=== PATIENT | male | born 1985 | race Caucasian/White ===

== ENCOUNTER 2024-07-14 10:02 | Emergency (ER) | payer SELFPAY ==
[2024-07-14 10:12] VITALS: BP 126/72; PULSE 89; RESP 17; TEMP 36.6; O2SAT 100
--- NOTE | 2024-07-14 10:16 | ED_ITS ---
HPI - URI/Sore Throat General Chief Complaint: Upper Respiratory Infection Stated Complaint: chest pain/cough Time Seen by Provider: 07/14/24 10:07 Source: patient Mode of arrival: ambulatory Limitations: no limitations History of Present Illness HPI Narrative: Patient is a 39-year-old male who presents with 3 weeks of cough and chest wall pain. Patient smokes 2 packs a day. Reports productive cough. Denies any fever, chills, nausea, vomiting, diarrhea. Has not taken anything for symptoms. Related Data Allergies Allergy/AdvReac Type Severity Reaction Status Date / Time No Known Allergies Allergy Verified 07/14/24 10:11 Review of Systems Review of Systems: All systems reviewed & are unremarkable except as noted in HPI and below Constitutional: Constitutional: Denies chills, Denies fatigue, Denies fever(s), Denies headache(s), Denies malaise and Denies weakness Eyes: Eyes: Denies blurry vision, Denies itchy eyes and Denies loss of vision ENT: Denies otalgia, Denies headache(s), Denies nasal congestion, Denies sinus pain and Denies sore throat Cardiovascular: Cardiovascular: Denies chest pain, Denies irregular heart rhythm and Denies dyspnea Respiratory: Respiratory: Reports chest congestion, Reports cough and Denies dyspnea Gastrointestinal: Gastrointestinal: Denies abdominal pain, Denies diarrhea, Denies nausea and Denies vomiting Musculoskeletal: Musculoskeletal: Denies back pain, Denies myalgias and Denies arthralgias Integumentary/Breasts: Skin/Breast: Denies pruritus and Denies rash Neurologic: Denies headache(s), Denies loss of vision and Denies weakness Psychiatric: Psychiatric: Reports no additional psychiatric complaints Endocrine: Endocrine: Denies fatigue Allergic/Immunologic: Allergic/Immunologic: Denies itchy eyes PMFSH Comments At time of signature, agree with nursing past medical, surgical, social and family history. There is no relevant family history pertinent to the presenting complaint. Exam Const: General: cooperative, healthy appearing, comfortable, no acute distress and well nourished Nutritional Appearance: well nourished Orientation/consciousness: patient oriented x3 Limitations: no limitations HENMT: Head: normal to inspection, normocephalic and atraumatic Ears: hearing grossly normal bilaterally, external ears normal, TM's normal bilaterally, EAC's normal and no periauricular adenopathy Face/Nose/Sinus: Normal external nose present, Abnormal mucous membranes and turbinates present erythematous bilateral and diffuse, normal facial exam, sinuses nontender and face symmetric Face and sinus: normal facial exam, sinuses nontender and face symmetric Mouth: Yes Normal oral and palatal mucosa present, Yes lip normal, Yes tongue normal, Yes Normal salivary glands and ducts present, Yes oropharynx normal and Yes moist mucous membranes Teeth and gingiva: dentition normal Throat: posterior oropharynx normal, tonsils normal and uvula midline Eyes: General: appearance normal, both eyes and all related structures Alignment and Position: alignment normal and position normal Periorbital: periorbital findings normal Eyelids: eyelids normal Pupils: Equal, round and reactive pupils present Neck: Neck: normal visual inspection, full ROM, no lymphadenopathy and supple Chest: Chest palpation & inspection: normal inspection of the chest and normal palpation of entire chest wall Resp: Effort & Inspection: normal respiratory effort, able to speak in complete sentences and Actively coughing productive Auscultation: no crackles, no rales, rhonchi throughout and no wheezes Cardio: Rate: regular rate Rhythm: regular rhythm Heart sounds: S1 normal heart sound present and S2 normal heart sound present GI: Inspection: normal to inspection Skin: General skin exam: normal color and no rashes or lesions noted Neuro: General: patient oriented x3 and moves all extremities Cranial nerves: Yes Equal, round and reactive pupils present Speech: normal speech Gait exam (Neuro): Normal gait present Extrem: General: normal to inspection, full ROM and no edema Psych: Appearance: grossly normal and well kempt Mental Status: mental status grossly normal Speech and movement: Normal speech and movement present Affect: normal affect Attitude: cooperative Thought process: Normal thought process present Course Course Emergency Course: Discharge instructions reviewed with patient, as well as provided in writing per nursing staff. The instructions also include specific and strict return/GO TO THE ER as well as f/u information. All questions have been answered, and the patient deny any further questions w ith discharge and discharge plan. Portions of this record may have been created with voice recognition software Level of Care: Express Care Visit Vital Signs Vital signs: Vital Signs Temperature 36.6 C 07/14/24 10:12 Pulse Rate 89 07/14/24 10:12 Respiratory Rate 17 07/14/24 10:12 Blood Pressure 126/72 07/14/24 10:12 Pulse Oximetry 100 07/14/24 10:12 Oxygen Delivery Room Air 07/14/24 10:12 Temperature 36.6 C 07/14/24 10:12 Pulse Rate 89 07/14/24 10:12 Respiratory Rate 17 07/14/24 10:12 Blood Pressure 126/72 07/14/24 10:12 Pulse Oximetry 100 07/14/24 10:12 Oxygen Delivery Room Air 07/14/24 10:12 Reviewed MDM - URI/Sore Throat MDM Narrative Medical decision making narrative: Pt well hydrated appearing, in no respiratory distress, hemodynamically stable. Recommend supportive care. The patient is stable at time of discharge the clinical impression was discussed and the patient was given the opportunity to ask questions, which were addressed as completely as possible given the information available at present. Anticipatory guidance and return to care prec autions were discussed and the importance of primary care follow-up was stressed and encouraged. The patient voiced understanding of the plan, indications to return, and the need for follow-up. Differential diagnosis considered: Bronchitis, Santizo virus, strep pharyngitis, allergic rhinitis, upper respiratory tract infection, sinusitis, rhinosinusitis, nasopharyngitis. viral pharyngitis, otitis media, otitis externa, otitis effusion, foreign body, cerumen impaction, viral syndrome, and influenza.? Exam findings show no acute concerns or changes; patient is non-toxic appearing and is in no distress.? Patient is appropriate for outpatient treatment and follow- up.? Medical Records Attestation: I reviewed the patient's medical records. Lab Data Attestation: I reviewed the patient's lab results. Discharge Plan Discharge Clinical Impression: Acute purulent bronchitis Patient Disposition: Home, Self-Care Condition: Stable Instructions: Acute Bronchitis (ED) Additional Instructions: Take antibiotic as prescribed. Take steroids in the morning with food. Use Tessalon Perles as needed for cough. Use inhaler with spacer as needed. Other symptomatic treatments include: -Alternate Tylenol and Motrin per package directions for fever or pain: Tylenol 650-1000mg by mouth every 4-6 hours. Do not exceed 4000mg in 24 hours. Advil (Ibuprofen) 600 mg by mouth every 6 hours. Do not exceed 2400mg in 24 hours. 8 AM: Tylenol 11 AM: Ibuprofen 2 PM: Tylenol 5 PM: Ibuprofen 8 PM: Tylenol 11 PM: Ibuprofen 2 AM: Tylenol 5 AM: Ibuprofen -Antihistamine medication such as Benadryl at night and Zyrtec/Claritin/Kya during the day can help improve symptoms. -Use Flonase twice a day for 5 days then daily to help reduce the inflammation and dry up your sinuses. -You can also use Sudafed or Mucinex. Be sure to drink plenty of water with these medications at least 8 ounces with every dose and it is important to drink 8 to 10 glasses of water per day. Water is a natural decongestant -Eat and drink things that are easy to swallow, like tea or soup, or popsicles. -Oral rinses such as: Salt water gargles and/or may use topical anesthetic (eg. Chloraseptic spray) or lozenges to relieve dryness or throat pain). -Frequent hand washing or hand ethylbenzene converter operator is one of the best ways to prevent spread of infection. -Using a vaporizer or humidifier at night will also help thin secretions and help with coughing up phlegm. Call your Primary Care Doctor and make a follow-up appointment in 3 days. If your cough worsens, you develop a fever greater than 103, you develop shaking chills, a fast heartbeat, trouble breathing and/or feel you are are breathing much faster than usual, call your Primary Care Doctor or go to the ER. Patient Language: Uruguayan Prescriptions: New prednisone 20 mg tablet 40 mg PO DAILY 5 Days Qty: 10 0RF doxycycline monohydrate 100 mg tablet 100 mg PO BID 7 Days Qty: 14 0RF benzonatate 100 mg capsule 100 mg PO BID PRN (Reason: cough) Qty: 14 0RF albuterol sulfate 90 mcg/actuation HFA aerosol inhaler 2 puff inhalation QID PRN (Reason: shortness of breath or wheezing) Qty: 6.7 0RF (DME) Aerochamber MV Spacer See Rx Instructions .Route Qty: 1 0RF Rx Instructions: As directed Follow-up/Referrals: UNKNOWN,DOCTOR [Primary Care Provider] - Time of Disposition: 10:28
--- OUTSIDE RECORDS SUMMARY | 2024-07-14 10:47 | XMS_ITS ---
Author Organization Unknown Address [address], [place] [id number] Phone Care Team Providers Care Merchandise Flow Team Leader Name Role Phone NIKKIE DEL TORO Attending Unavaila ble Immunization Immunization Date Status Additional Notes Code Code System Hep B, unspecified formulation 09/04/1998 Completed 45 CVX Hep B, unspecified formulation 02/27/1998 Completed 45 CVX Hep B, unspecified formulation 04/10/1998 Completed 45 CVX Influenza, split virus, quadrivalent, PF 02/01/2014 Completed 150 CVX no vaccine administered 1985 Completed 998 CVX Results UGI W/AIR - Completed: 05/12 09:20 LOINC: \TM00\10PI\LM03\RM80\BELKIS o\BM09\ \MRHo\ [address] [address] ---------NAME--------- NUMBER SEX AGE ADMIT DISC. XRAY# F/C TYPE PRASHANT Corey [id number] M 36 05/12/21 05/12/21 [id number] BB O/P DATE OF : 1985 M/R# [id number] PH#: [phone] RM \MRHx\ LOCATION: TRANSCRIBED: 05/12/21 9:41 PSR UGI W/AIR [id number] COMPLETED:05/12/21 9:20 VLF [id number] {REASON ABD PROC GERD WITH ESOPHAGITIS, PHYSICIAN: TETO R A D I O L O G Y R E P O R T History: Gastroesophageal reflux disease. Esophagitis. TECHNIQUE: Double contrast upper GI performed. One minute 15 seconds of fluoroscopy utilized. 89 spot views obtained. On these: Swallowing with thin liquid barium appeared within normal limits. There is no penetration or aspiration. Esophageal peristalsis appears within normal limits. Contrast passed freely into the stomach. There is no hiatal hernia. GE reflux was demonstrated to a level below the kvng. There is no mass or stricture. No inflammatory or ulcerative changes identified at any site. Contrast passed freely from the stomach into the proximal small intestine. There is normal gastric peristalsis. Ligament of Treitz is in normal location. No mass lesions identified. IMPRESSION: MILD GE REFLUX. This report was electronically signed by: Butch Graff M.D. 05/12/2021 9:41 AM Reviewed and Electronically Signed by: BUTCH GRAFF MD , RADIOLOGIST Date/Time: 05/12/21 09:41 Social History Type Status Start Date End Date Code Code Syst em Smoking History Current every day smoker 336654903 SNOMED CT Smoking History Former smoker 1874870 SNOMED CT Sex Male Assessment You had the following problems:ACUTE BRONCHITISCURRENT SMOKERCERUMEN IMPACTION Hospital Discharge Instructions Should you have any questions prior to discharge, please contact a member of your healthcare team. If you have left the hospital and have any questions, please contact your primary care physician. Reason For Referral No Data Found Problems Problem Start Date Resolved Date Status Code Code System ACUTE BRONCHITIS active 78185777 SNO MED-CT CURRENT SMOKER active 38472094 SNOME D-CT CERUMEN IMPACTION active 38238022 SN OMED-CT Allergies and Adverse Reactions Allergy Substance Reaction Severity Start Date Concern Status Co de Code System No Known Drug Allergies Moderate Active 246222828 SNOMED-CT Plan of Treatment No Data Found Encounters Encounter Diagnosis Start Date Code Code Sys tem Gastro-esophageal reflux dis ease with esophagitis, without bleeding 05/12/2021 SNOMED-CT Personal Care Team Section Performer Name Performer Role Active Date Inactive Christopher collier LUCASDUC JOSE RAFAEL PCP - Primary care physician 2022-03-04 Imaging Narrative Notes [facility] [place] 07/12/2021 03:48 [facility] [address] [place] [address] ---------NAME--------- NUMBER SEX AGE ADMIT DISC. XRAY# F/C TYPE PRASHANT Corey [id number] M 36 05/12/21 05/12/21 [id number] BB O/P DATE OF : 1985 M/R# [id number] #: [phone] LOCATION: TRANSCRIBED: 05/12/21 9:41 PSR UGI W/AIR [id number] COMPLETED:05/12/21 9:20 VLF [id number] {REASON ABD PROC GERD WITH ESOPHAGITIS, PHYSICIAN: TETO R A D I O L O G Y R E P O R T History: Gastroesophageal reflux disease. Esophagitis. TECHNIQUE: Double contrast upper GI performed. One minute 15 seconds of fluoroscopy utilized. 89 spot views obtained. On these: Swallowing with thin liquid barium appeared within normal limits. There is no penetration or aspiration. Esophageal peristalsis appears within normal limits. Contrast passed freely into the stomach. There is no hiatal hernia. GE reflux was demonstrated to a level below the kvng. There is no mass or stricture. No inflammatory or ulcerative changes identified at any site. Contrast passed freely from the stomach into the proximal small intestine. There is normal gastric peristalsis. Ligament of Treitz is in normal location. No mass lesions identified.
--- OUTSIDE RECORDS SUMMARY | 2024-07-14 10:47 | XMS_ITS | Encounter Summary ---
Author Organization [facility] Care Address [address] [place] [address] Phone Care Team Providers Care Senior Planner Name Role Phone Dominic Jordan Primary Care Provider [phone] Encounter Details Date Type Department Care Team (Late st Contact Info) Description 03/20/2022 Pharmacy Visit [facility] - Pharmacy - Discharge [address] [place] [address] Social History Tobacco Use Types Packs/Day Years Used Date Smoking Tobacco: Every Day Cigarettes Smokeless Tobacco: Never Alcohol Use Standard Drinks/Week Comments Not Currently 0 (1 standard drink = 0.6 oz pur e alcohol) last drink 3 weeks Sex and Gender Information Value Date Recorded Sex Assigned at Not on file Legal Sex Male 5:59 AM CDT Gender Identity Not on file Sexual Orientation Not on file documented as of this encounter Plan of Treatment Not on file documented as of this encounter Visit Diagnoses Not on filedocumented in this encounter Additional Health Concerns Assessment Noted Time A fall risk assessment has been complete d for the patient 03/19/2022 3:39 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
--- OUTSIDE RECORDS SUMMARY | 2024-07-14 10:47 | XMS_ITS | Clinical Summary ---
Author Organization [facility] Care Address [address] [place] [address] Phone Care Team Providers Care Sports Medicine Masseur Name Role Phone Dominic Jordan Primary Care Provider [phone] Source Comments This disclosure is being made pursuant to the Care Everywhere program,applicable federal and state laws, and may not contain all informationavailable regarding this patient.[facility] Practices Allergies No known active allergies Medications risperiDONE 2 mg tabletIndications:A uditory hallucinations Take 1 tablet (2 mg total) by mouth daily at bedtime. 90 tablet 3 2 Active escitalopram oxalate (LEXAPRO) 10 mg tabletIndications:G eneralized anxiety disorder Take one half tablet (5 mg) daily for one week, then increase to one full tablet (10 mg) daily. 90 tablet 3 2 Active Active Problems Problem Noted Date Diagnosed Date Auditory hallucinations 03/19/2022 Alcohol withdrawal syndrome 03/05/2022 Anxiety 03/05/2022 Immunizations Name Administration Dates Next Due Tdap 08/30/2011 Social History Tobacco Use Types Packs/Day Years Used Date Smoking Tobacco: Every Day Cigarettes Smokeless Tobacco: Never Tobacco Cessation:Ready to Q uit: No; Counseling Given: No Alcohol Use Standard Drinks/Week Comments Not Currently 0 (1 standard drink = 0.6 oz pur e alcohol) last drink 3 weeks PHQ-2 Answer Date Recorded Total score/PHQ-2 5 03/26/2022 Abuse Risk Answer Date Recorded Are you in an UNsafe relationship? Not on file 07/18/2023 Does your partner/boyfriend or girlfriend hit, kick, hurt, or threaten you? Not on file 07/18/2023 Have you suffered any injury as a result of abuse in the past year? Not on file 07/18/2023 Does your partner/boyfriend or girlfriend ever try to control you by threatening you or your family? Not on file 024 Are you currently being forc ed to engage in sexual activity? Not on file 07/18/2023 Are you being abused or thre atened in your work or home environment? Not on file 07/18/2023 Are you being forced to work? Not on file Is the patient a d ependent adult ? Not on file 07/18/2023 Do you feel unsafe at home? Does not apply 07/08 Has anyone tried to force yo u to sign papers or to use your money against your will? Does not apply 07/18/2023 Sex and Gender Information Value Date Recorded Sex Assigned at Not on file Legal Sex Male 5:59 AM CDT Gender Identity Not on file Sexual Orientation Not on file Last Filed Vital Signs Vital Sign Reading Time Taken Comments Blood Pressure 110/64 03/26/2022 9:02 AM JOB HAND Pulse 91 03/26/2022 9:02 AM JOB HAND Temperature 36.5 C (97.7 F) 03/20/2022 8:00 AM JOB HAND Respiratory Rate 15 03/20/2022 8:00 AM JOB HAND Oxygen Saturation 98% 03/20/2022 8:00 AM JOB HAND Inhaled Oxygen Concentration - - Weight 61.4 kg (135 lb 5.8 oz) 03/26/2022 9:02 A M JOB HAND Height 177.8 cm (5' 10 ) 03/26/2022 9:02 AM JOB HAND Body Mass Index 19.42 03/26/2022 9:02 AM JOB HAND Plan of Treatment Health Maintenance Due Date Last Done Comments Annual Physical Visit 1988 HIV [place] Screening 2000 HCV Screening 2003 Varicella Vaccine (1 of 2 - Adult - No Evidence of Immunity) 2003 Pneumococcal Vaccine (1 of 2 - PCV) 2004 Tetanus Diphtheria Pertussis (2 - Td or Tdap) 08/29/2021 08/30/2011 Alcohol Use Screening 03/26/2023 03/26/2022, 022 [id number] Vaccine ( season) 2024 Influenza Vaccine: Seasonal (#1) 01/09/2024 02/02/20 14 Lipid Disorder Screening 03/19/2027 03/19/2022 Hepatitis B Vaccine Completed 09/04/1998, 04/10/1998, 02/27/1998 Procedures Procedure Name Priority Date/Time Associated Diagnosis Comments LIPID PANEL Add on 03/19/2022 5:32 AM JOB HAND from Last 3 Months or Most Recently Relevant to Health Maintenance Results * (ABNORMAL) LIPID PANEL (03/19/2022 5:32 AM JOB HAND) Specimen Type 03/20/2022 9:01 AM JOB HAND [facility] Cholesterol 157 mg/dL 03/20/2022 9:01 AM [facility] Comment: Guidelines from the National Lipid Association and the National Cholesterol Education Program for cardiovascular risk for adults 18 years of age and older: Desirable: <200 mg/dL Borderline High: 200-239 mg/dL High: > or =240 mg/dL Triglycerides 87 0 - 149 mg/dL 03/20/2022 9:01 AM JOB HAND [facility] Comment: Guidelines from the National Lipid Association and the National Cholesterol Education Program for cardiovascular risk for adults 18 years of age and older: Normal: <150 mg/dL Borderline-high: 150-199 mg/dL High: 200-499 mg/dL Very high: > or = 500 mg/dL HDL Cholesterol 37(L) >=40 mg/dL 03/20/2022 9:01 AM [facility] Comment: Guidelines from the National Lipid Association and the National Cholesterol Education Program for cardiovascular risk for adults 18 years of age and older: Males: 40 mg/dL or higher Females: 50 mg/dL or higher LDL Cholesterol, Calculated 102 <=130 mg/dL 03/20/2022 9:01 AM [facility] Comment: Guidelines from the National Lipid Association and the National Cholesterol Education Program for cardiovascular risk for adults 18 years of age and older: Desirable: <100 mg/dL Above Desirable: 100-129 mg/dL Borderline High: 130-159 mg/dL High: 160-189 mg/dL Very High: > or =190 mg/dL Non-HDL Cholesterol, Calculated 120 mg/dL 03/20/2022 9:01 AM JOB HAND [facility] Comment: Guidelines from the National Lipid Association and the National Cholesterol Education Program for cardiovascular risk for adults 18 years of age and older: Desirable: <130 mg/dL Above Desirable: 130-159 mg/dL Borderline High: 160-189 mg/dL High: 190-219 mg/dL Very High: > or =220 mg/dL Blood Venipuncture / Unknown 03/19/2022 5:32 AM JOB HAND 03/19/2022 5:38 AM JOB HAND us Sony Chapin CHEMISTRY ORDERABLES Final Resul t [facility] [address] [place] [address] from Last 3 Months or Most Recently Relevant to Health Maintenance Insurance [facility] Advance Directives For more information, please contact: [phone] * Full Code (Latest Code Status on File) Date Activated Date Inactivated Comments 03/19/2022 3:25 PM 03/20/2022 10:24 PM * Full Code Date Activated Date Inactivated Comments 03/19/2022 6:40 AM 03/19/2022 3:25 PM Care Teams Sports Medicine Masseur Relationship Specialty Start Date End Date Dominic Jordan [address] [facility] [address] [place] [phone] PCP - General Family Practice 03/19/22
--- OUTSIDE RECORDS SUMMARY | 2024-07-14 10:47 | XMS_ITS ---
Author Organization Unknown Address [address], [place] [id number] Phone Care Team Providers Care Senior Sous Chef Name Role Phone ABILIO ISBELL Attending Unavailable HOMA MANTILLA Primary Unavailable Immunization Immunization Date Status Additional Notes Code Code System Hep B, unspecified formulation 09/04/1998 Completed 45 CVX Hep B, unspecified formulation 02/27/1998 Completed 45 CVX Hep B, unspecified formulation 04/10/1998 Completed 45 CVX Influenza, split virus, quadrivalent, PF 02/01/2014 Completed 150 CVX no vaccine administered 1985 Completed 998 CVX Social History Type Status Start Date End Date Code Code Syst em Smoking History Current every day smoker 995755255 SNOMED CT Smoking History Former smoker 5745305 SNOMED CT Sex Male Assessment You had [...] Status Code Code System ACUTE BRONCHITIS active 27134742 SNO MED-CT CURRENT SMOKER active 91645924 SNOME D-CT CERUMEN IMPACTION active 63624646 SN OMED-CT Allergies and Adverse Reactions Allergy Substance Reaction Severity Start Date Concern Status Co de Code System No Known Drug Allergies Moderate Active 052509731 SNOMED-CT Plan of Treatment No Data Found Encounters Encounter Diagnosis Start Date Code Code Sys tem Delusional disorders 03/19/2022 SNOMED- CT Personal Care Team Section Performer Name Performer Role Active Date Inactive Christopher [place] PCP - Primary care physician 2022-03-04
--- OUTSIDE RECORDS SUMMARY | 2024-07-14 10:47 | XMS_ITS | Encounter Summary ---
Author Organization [facility] Care Address [address] [place] [address] Phone Care Team Providers Care Investigation Clerk Name Role Phone Dominic Jordan Primary Care Provider [phone] Reason for Visit * Reason Comments Medication Refill Encounter Details Date Type Department Care Team (Late st Contact Info) Description 04/15/2022 [facility] Psychiatry - Child [address] [place] [address] Amparo Strickland [address] [place], [place] [id number] Social History Tobacco Use Types Packs/Day Years Used Date Smoking Tobacco: Every Day Cigarettes Smokeless Tobacco: Never Alcohol Use Standard Drinks/Week Comments Not Currently 0 (1 standard drink = 0.6 oz pur e alcohol) last drink 3 weeks PHQ-2 Answer Date Recorded Total score/PHQ-2 5 03/26/2022 Sex and Gender Information Value Date Recorded Sex Assigned at Not on file Legal Sex Male 5:59 AM CDT Gender Identity Not on file Sexual Orientation Not on file documented as of this encounter Plan of Treatment Not on file documented as of this encounter Visit Diagnoses Diagnosis Auditory hallucinations Hallucinations Generalized anxiety disorder documented in this encounter Additional Health Concerns Assessment Noted Time A fall risk assessment has been complete d for the patient 03/26/2022 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
--- OUTSIDE RECORDS SUMMARY | 2024-07-14 10:47 | XMS_ITS ---
Author Organization Unknown Address [address] [place], [place] [id number] Phone Care Team Providers Care Child Care Development Specialist Name Role Phone NIKKIE DEL TORO Attending Unavaila ble Immunization Immunization Date Status Additional Notes Code Code System Hep B, unspecified formulation 09/04/1998 Completed 45 CVX Hep B, unspecified formulation 02/27/1998 Completed 45 CVX Hep B, unspecified formulation 04/10/1998 Completed 45 CVX Influenza, split virus, quadrivalent, PF 02/01/2014 Completed 150 CVX no vaccine administered 1985 Completed 998 CVX Results SARS-OcV-2 - Collect Date/Ti me: 11/27/2019 09:56 [facility] I NC ID: [id number] [address] [place], [place], [id number] LOINC: F46645-8 Test Value Unit Reference Range Code Code System Flag SARS CoV 2 RNA NOT DETECTED NOT DETECTED 08346-9 LOINC ORGANISM COVID-19 NOT DETECTED D42256-7 LOINC Social History Type Status Start Date End Date Code Code Syst em Smoking History Current every day smoker 560798694 SNOMED CT Smoking History Former smoker 6250710 SNOMED CT Sex Male Assessment You had [...] Status Code Code System ACUTE BRONCHITIS active 18985364 SNO MED-CT CURRENT SMOKER active 95195411 SNOME D-CT CERUMEN IMPACTION active 44677853 SN OMED-CT Allergies and Adverse Reactions Allergy Substance Reaction Severity Start Date Concern Status Co de Code System No Known Drug Allergies Moderate Active 798001563 SNOMED-CT Plan of Treatment No Data Found Encounters Encounter Diagnosis Start Date Code Code Sys tem Cough 11/27/2019 77304886 SNOMED-CT Personal Care Team Section Performer Name Performer Role Active Date Inactive Christopher Arnold PCP - Primary care physician 2022-03-04
--- OUTSIDE RECORDS SUMMARY | 2024-07-14 10:48 | XMS_ITS | Referral Summary ---
Author Organization [facility] Care Address [address] [place] [address] Phone Care Team Providers Care Police Captain Precinct Name Role Phone Dominic Jordan Primary Care Provider [phone] Source Comments This disclosure is being made pursuant to the Care Everywhere program,applicable federal and state laws, and may not contain all informationavailable regarding this patient.[facility] Practices Allergies No known active allergies Medications [...] you or your family? Not on file Are you currently being forc ed to [...] Comments Blood Pressure 110/64 03/26/2022 9:02 AM FRAMING SPECIALIST Pulse 91 03/26/2022 9:02 AM FRAMING SPECIALIST Temperature 36.5 C (97.7 F) 03/20/2022 8:00 AM FRAMING SPECIALIST Respiratory Rate 15 03/20/2022 8:00 AM FRAMING SPECIALIST Oxygen Saturation 98% 03/20/2022 8:00 AM FRAMING SPECIALIST Inhaled Oxygen Concentration - - Weight 61.4 kg (135 lb 5.8 oz) 03/26/2022 9:02 A M FRAMING SPECIALIST Height 177.8 cm (5' 10 ) 03/26/2022 9:02 AM FRAMING SPECIALIST Body Mass Index 19.42 03/26/2022 9:02 AM FRAMING SPECIALIST Plan of Treatment Not on file Procedures Procedure Name Priority Date/Time Associated Diagnosis Comments LIPID PANEL Add on 03/19/2022 5:32 AM FRAMING SPECIALIST from Last 3 Months or Most Recently Relevant to Health Maintenance Results * (ABNORMAL) LIPID PANEL (03/19/2022 5:32 AM FRAMING SPECIALIST) Specimen Type 03/20/2022 9:01 AM FRAMING SPECIALIST [facility] Cholesterol 157 mg/dL 03/20/2022 9:01 AM [facility] Comment: Guidelines from the National Lipid Association and the National Cholesterol Education Program for cardiovascular risk for adults 18 years of age and older: Desirable: <200 mg/dL Borderline High: 200-239 mg/dL High: > or =240 mg/dL Triglycerides 87 0 - 149 mg/dL 03/20/2022 9:01 AM [facility] Comment: Guidelines from the National Lipid Association and the National Cholesterol Education Program for cardiovascular risk for adults 18 years of age and older: Normal: <150 mg/dL Borderline-high: 150-199 mg/dL High: 200-499 mg/dL Very high: > or = 500 mg/dL HDL Cholesterol 37(L) >=40 mg/dL 03/20/2022 9:01 AM [facility] Comment: Guidelines from the National Lipid Association and the National Cholesterol Education Program for cardiovascular risk for adults 18 years of age and older: Males: 40 mg/dL or higher Females: 50 mg/dL or higher LDL Cholesterol, Calculated 102 <=130 mg/dL 03/20/2022 9:01 AM [facility] Comment: Guidelines from the National Lipid Association and the National Cholesterol Education Program for cardiovascular risk for adults 18 years of age and older: Desirable: <100 mg/dL Above Desirable: 100-129 mg/dL Borderline High: 130-159 mg/dL High: 160-189 mg/dL Very High: > or =190 mg/dL Non-HDL Cholesterol, Calculated 120 mg/dL 03/20/2022 9:01 AM [facility] Comment: Guidelines from the National Lipid Association and the National Cholesterol Education Program for cardiovascular risk for adults 18 years of age and older: Desirable: <130 mg/dL Above Desirable: 130-159 mg/dL Borderline High: 160-189 mg/dL High: 190-219 mg/dL Very High: > or =220 mg/dL Blood Venipuncture / Unknown 03/19/2022 5:32 AM FRAMING SPECIALIST 03/19/2022 5:38 AM FRAMING SPECIALIST us Sony Chapin CHEMISTRY ORDERABLES Final Resul t [facility] [address] [place] [address] from Last 3 Months or Most Recently Relevant to Health Maintenance Insurance [facility] Advance Directives For more information, please contact: [phone] * Full Code (Latest Code Status on File) Date Activated Date Inactivated Comments 03/19/2022 3:25 PM 03/20/2022 10:24 PM * Full Code Date Activated Date Inactivated Comments 03/19/2022 6:40 AM 03/19/2022 3:25 PM Care Teams Police Captain Precinct Relationship Specialty Start Date End Date Dominic Jordan [address] [address] PCP - General Family Practice 03/19/22
--- OUTSIDE RECORDS SUMMARY | 2024-07-14 10:48 | XMS_ITS ---
Author Organization Unknown Address [address] [place], [place] [phone] Phone Care Team Providers Care Transonic Engineer Name Role Phone WASHINGTON CALDERON Attending Unavailable HOMA MANTILLA Primary Unavailable Immunization Immunization Date Status Additional Notes Code Code System Hep B, unspecified formulation 09/04/1998 Completed 45 CVX Hep B, unspecified formulation 02/27/1998 Completed 45 CVX Hep B, unspecified formulation 04/10/1998 Completed 45 CVX Influenza, split virus, quadrivalent, PF 02/01/2014 Completed 150 CVX no vaccine administered 1985 Completed 998 CVX Results RAPID URINE DRUG SCREEN - Co llect Date/Time: 03/04/2022 21:02 [facility] ID: [id number] [address] [place], [address] LOINC: 49796-1 Test Value Unit Reference Range Code Code System Flag CANNABINOIDS (THC) NEGATIVE NORMAL:Negative OPIATES NEGATIVE NORMAL:Negative AMPHETAMINES NEGATIVE NORMAL:Negative COCAINE NEGATIVE NORMAL:Negative TRICYCLIC ANTIDEPRES NEGATIVE NORMAL:Negative BARBITURATES NEGATIVE NORMAL:Negative METHADONE NEGATIVE NORMAL:Negative BENZODIAZEPINES NEGATIVE NORMAL:Negative PROPOXYPHENE NEGATIVE NORMAL:Negative METHAMPHETAMINE NEGATIVE NORMAL:Negative OXYCODONE NEGATIVE NORMAL:Negative PHENCYCLIDINE NEGATIVE NORMAL:Negative CBC W/DIFF - Collect Date/Ti me: 03/04/2022 19:19 [facility] ID: [id number] [address] [place], [address] LOINC: 00714-0 Test Value Unit Reference Range Code Code System Flag WBC 11.0 K/uL L=3.2 H=10.0 6690-2 LOINC H RBC 4.94 M/uL L=4.30 H=5.70 789-8 LOINC HEMOGLOBIN 15.6 g/dL L=13.6 H=17.1 718-7 LOINC HEMATOCRIT 43.9 % L=40.0 H=52.0 06737-6 LOINC MCV 88.9 fL L=81.0 H=101 MCH 31.6 PG L=26.0 H=38.0 MCHC 35.5 G/DL L=31.0 H=37.0 RDW-SD 38.9 FL L=37.0 H=54.0 RDW-CV 11.9 % L=11.0 H=16.0 PLATELETS 316 K/UL L=140 H=380 777-3 LOINC MPV 8.9 FL L=9.0 H=13.0 L %Neutrophil 52.0 % L=0.0 H=75.0 %LYMPH 38.7 % L=0.0 H=50.0 %MONO 6.9 % L=0.0 H=14.0 %EOS 1.5 % L=0.0 H=6.0 %BASO 0.6 % L=0.0 H=1.0 #Neutrophil 5.73 K/UL L=1.80 H=7.80 #LYMPH 4.26 K/UL L=0.30 H=4.00 H #MONO 0.76 K/UL L=0.00 H=0.70 H #EOS 0.16 K/UL L=0.00 H=0.40 #BASO 0.07 K/UL L=0.00 H=0.10 SLIDE REVIEWED? NOT INDICATED MANUAL DIFF NOT INDICATED COMPREHENSIVE METABOLIC PANE L - Collect Date/Time: 03/04/2022 19:19 [facility] ID: [id number] [address] [place], [address] LOINC: 60709-4 Test Value Unit Reference Range Code Code System Flag GLUCOSE V 100 mg/dL L=74 H=106 2324-2 LOINC SODIUM V 145 mmol/L L=137 H=145 2951-2 LOINC POTASSIUM V 3.8 mmol/L L=3.5 H=5.1 2823-3 LOINC CHLORIDE V 109 mmol/L L=98 H=107 2075-0 LOINC H CO2 V 20 mmol/L L=22 H=30 L BUN V 16.0 mg/dL L=9.0 H=20.0 5370-2 LOINC CREATININE V 0.9 mg/dL L=0.6 H=1.2 2160-0 LOINC BUN/CREAT V 17.8 L=7.6 H=21.2 5609-3 LOINC CALCIUM V 9.3 mg/dL L=8.4 H=10.2 74650-6 LOINC TOTAL BILI V 0.5 mg/dL L=0.2 H=1.3 1975-2 LOINC TOTAL PROTEIN V 7.4 g/dL L=6.3 H=8.2 2885-2 LOINC ALBUMIN V 4.7 g/dL L=3.5 H=5.0 1751-7 LOINC A/G RATIO V 1.8 ALKALINE PHOS V 44 IU/L L=38 H=126 6768-6 LOINC AST/SGOT V 24 U/L L=17 H=59 5370-2 LOINC ALT/SGPT V 23 U/L L=0 H=50 1742-6 LOINC ANION GAP V 19.5 mmol/L L=7.0 H=16.0 H AGE V 36 YEARS GFR V 101.48 ml/min ACETAMINOPHEN, SERUM OR PLAS MA - Collect Date/Time: 03/04/2022 19:19 [facility] ID: [id number] [address] [place], [address] LOINC: 3298-7 Test Value Unit Reference Range Code Code System Flag ACETAMINOPHEN V < 10.0 mcg/mL L=10.0 H=30.0 3298-7 LOINC ALCOHOL - Collect Date/Time: 03/04/2022 19:19 [facility] ID: [id number] [address] [place], [address] LOINC: 5643-2 Test Value Unit Reference Range Code Code System Flag ALCOHOL V 60.00 mg/dL L=0.00 H=10.00 5643-2 LOINC H SALICYLATE, SERUM OR PLASMA - Collect Date/Time: 03/04/2022 19:19 [facility] ID: [id number] [address] [facility], [place], [address] LOINC: 4024-6 Test Value Unit Reference Range Code Code System Flag SALICYLATES V < 1.0 mg/dL L=2.0 H=20.0 2880-3 LOINC L TSH - Collect Date/Time: 19:19 [facility] ID: [id number] [address] [facility], [place], [address] LOINC: 3016-3 Test Value Unit Reference Range Code Code System Flag TSH V 1.610 mIU/mL L=0.465 H=4.680 3016-3 LOINC CoV-2 RT-PCR HCHC - Collect Date/Time: 03/04/2022 19:19 [facility] ID: [id number] [address] [place], [address] LOINC: [id number] Test Value Unit Reference Range Code Code System Flag SARS-CoV-2 NEGATIVE R66170-7 LOINC Social History Type Status Start Date End Date Code Code Syst em Smoking History Current every day smoker 192082717 SNOMED CT Smoking History Former smoker 9201449 SNOMED CT Sex Male Assessment You had the following problems:ACUTE BRONCHITISCURRENT SMOKERCERUMEN IMPACTION Hospital Discharge Instructions Should you have any questions prior to discharge, please contact a member of your healthcare team. If you have left the hospital and have any questions, please contact your primary care physician. Reason For Referral No Data Found Procedures Procedure Name Date Status Code Code Syste m THER/PROPH/DIAG INJ SC/IM 03/04/2022 completed 70743 CPT Problems Problem Start Date Resolved Date Status Code Code System ACUTE BRONCHITIS active 44011907 SNO MED-CT CURRENT SMOKER active 69407029 SNOME D-CT CERUMEN IMPACTION active 48663706 SN OMED-CT Allergies and Adverse Reactions Allergy Substance Reaction Severity Start Date Concern Status Co de Code System No Known Drug Allergies Moderate Active 012201666 SNOMED-CT Plan of Treatment No Data Found Encounters Encounter Diagnosis Start Date Code Code Sys tem Delusional disorders 03/04/2022 SNOMED- CT Personal Care Team Section Performer Name Performer Role Active Date Inactive Christopher Arnold PCP - Primary care physician 2022-03-04
--- OUTSIDE RECORDS SUMMARY | 2024-07-14 10:48 | XMS_ITS | Data Portability ---
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 He also needs help with paperwork, and the instructions on his medicine were too long so the computer was unable to electronically send him what he needed, I was able to print out a paper with his instructions and handed to him. Patient is here for a high complexity medical visit with extensive history taken and management provided. I had extra time today to review the patient's record prior to the visit, I was also able to perform a medically appropriate history and examination and order any prescriptions medications tests and procedures that the patient needed. I will also independently interpreted results for the patient and communicated the results to the patient . I'm also able to spend extra time documenting all of this in the electronic health record and coordinating care for the patient as follows-- Chronic illnesses with severe exacerbation or progression: depression and anxiety Acute problems: alcohol withdrawal Review of prior external notes and tests: ER labs Independent interpretation of the test performed by another healthcare provider: yes, he had an elevated white blood cell count Discussion of management and test interpretation with the appropriate source: discussed with the patient Drug therapy requiring monitoring: benzodiazepines and antidepressants Decision regarding major surgery or hospitalization: he is going to get placement at a rehabilitation center but currently does not need surgery or hospitalization if he feels actively suicidal he will use the emergency room again total time spent on his visit today was over an hour and I'll have to spend extra time filling out more [place] paperwork in addition. lorena Not available 03/05/2022 13:17:40 03/11/2022 03/11/2022 patient is here to have his [facility] paperwork filled out, he states that it's hard for him to perform most of his work due to his anxiety depression anger and panic attacks. He will be incapacitated from March 02 until March 16 and will need to follow up with therapy and doctor visits. He reports that he was admitted to the hospital overnight pain March 03 and Total visit time today was 41 minutes lorena Not available 03/11/2022 13:19:40 03/16/2022 03/16/2022 I told him that he can extend his FMLA time off until next Wednesday lorena Not available 03/16/2022 15:52:38 01/17/2024 01/17/2024 he is due for nv s annual wellness visit and tetanus shot, but we will start with a flu shot since he is here today and we are in the flu season, I will give him 5 minutes of smoking cessation counseling, and then do the problem focused visit regarding his depression and anxiety lorena Not available 01/17/2024 16:19:11 Plan of Treatment Reminders Order Date Submit Date Provider Last Modified By Organization Details Last Modified Time Details Appointments None recorded. Lab CBC w/ auto diff 2023 [facility] (Centralized Electronic Ordering - All Locations), Patient Can Go To The Location Of Their Choice, 13:09:05 CMP, serum or plasma 2023 024 [facility] (Centralized Electronic Ordering - All Locations), Patient Can Go To The Location Of Their Choice, 13:09:05 TSH + free T4, serum 2023 [facility] (Centralized Electronic Ordering - All Locations), Patient Can Go To The Location Of Their Choice, 13:09:04 testosteron e, total, serum 2023 [facility] (Centralized Electronic Ordering - All Locations), Patient Can Go To The Location Of Their Choice, [id number] 09/10/202 4 13:09:07 Hepatitis C IgG Ab, qual, serum 2023 024 [facility] (Centralized Electronic Ordering - All Locations), Patient Can Go To The Location Of Their Choice, [id number] 4 13:09:07 lipid panel, serum 2023 024 [facility] (Centralized Electronic Ordering - All Locations), Patient Can Go To The Location Of Their Choice, [id number] 4 13:09:06 Referral None recorded. Procedures None recorded. Surgeries None recorded. Imaging None recorded. Medication Orders paroxetine 30 mg tablet 2023 024 [facility] [address] [place], [address], 4 15:26:16 Chantix Starting Month Box 0.5 mg (11)-1 mg (42) tablets in dose pack 2023 024 LIN RobinsonEmmie [facility],[place], [address] [facility] [place], [address], 4 14:55:32 lorazepam 0.5 mg tablet 2023 024 LIN RobinsonEmmie [facility],[place], [address] [facility] [place], [address], 4 14:55:37 paroxetine 10 mg tablet 2023 024 [facility] RobinsonEmmie [facility],[place], [address] [facility] [place], [address], 4 15:19:52 bupropion HCl XL 300 mg 24 hr tablet, extended release 2021 022 [facility],[place], [address] [facility] [place], [address], 4 14:30:00 lorazepam 0.5 mg tablet 2021 [place], [address] [place], [address], 2 14:49:08 chlordiazep oxide 25 mg capsule 2021 022 [facility]orena [facility], [address] [place], [address], 14:43:45 chlordiazep oxide 25 mg capsule 2021 022 [facility], [address] [place], [address], 14:43:45 bupropion HCl XL 150 mg 24 hr tablet, extended release 2021 022 [place]na [facility] [place], [address] [place], [address], 14:47:31 Patient TargetsNo targets recorded. Patient InstructionsNo instructions recorded. Reason for Referral None Reported. Results Created Date Observation Date Name Description Value Unit Range Abnormal Flag Note LastModifiedBy Organization Detail LastModifiedTime 03/04/2003/04/2022 CBC W/DIF F CBC w/diff COMPL ETE BLOOD COUNT Not Available [facility] [address] [place], [address], 03/04/2022 20:31:12 03/04/2003/04/2022 CBC W/DIF F WBC 11.0 K/uL 3.2 - 10.0 high Not Available [facility] [address] [place], [address], 03/04/2022 20:31:12 03/04/2003/04/2022 CBC W/DIF F RBC 4.94 M/uL 4.30 - 5.70 Not Available [facility] [address] [place], [address], 03/04/2022 20:31:12 03/04/20 22 03/04/2022 CBC W/DIF F hemoglobin 15.6 g/dL 13.6 - 17.1 Not Available [facility] [address] [place], [address], 03/04/2022 20:31:12 03/04/20 22 03/04/2022 CBC W/DIF F hematocrit 43.9 % 40.0 - 52.0 Not Available [facility] [address] [place], [address], 03/04/2022 20:31:12 03/04/20 22 03/04/2022 CBC W/DIF F MCV 88.9 fL 81.0 - 101 Not Available [facility] [address] [place], [address], 03/04/2022 20:31:12 03/04/20 22 03/04/2022 CBC W/DIF F MCH 31.6 pg 26.0 - 38.0 Not Available [facility] [address] [place], [address], 03/04/2022 20:31:12 03/04/20 22 03/04/2022 CBC W/DIF F MCHC 35.5 g/dL 31.0 - 37.0 Not Available [facility] [address] [place], [address], 03/04/2022 20:31:12 03/04/2003/04/2022 CBC W/DIF F RDW-SD 38.9 fL 37.0 - 54.0 Not Available [facility] [address] [place], [address], 03/04/2022 20:31:12 03/04/20 22 03/04/2022 CBC W/DIF F RDW-CV 11.9 % 11.0 - 16.0 Not Available [facility] [address] [place], [address], 03/04/2022 20:31:12 03/04/2003/04/2022 CBC W/DIF F platelets 316 K/uL 140 - 380 Not Available [facility] [address] [place], [address], 03/04/2022 20:31:12 03/04/2003/04/2022 CBC W/DIF F MPV 8.9 fL 9.0 - 13.0 low Not Available [facility] [address] [place], [address], 03/04/2022 20:31:12 03/04/20 22 03/04/2022 CBC W/DIF F %neutrophil 52.0 % 0.0 - 75.0 Not Available [facility] [address] [place], [address], 03/04/2022 20:31:12 03/04/20 22 03/04/2022 CBC W/DIF F %lymph 38.7 % 0.0 - 50.0 Not Available [facility] [address] [place], [address], 03/04/2022 20:31:12 03/04/20 22 03/04/2022 CBC W/DIF F %mono 6.9 % 0.0 - 14.0 Not Available [facility] [address] [place], [address], 03/04/2022 20:31:12 03/04/20 22 03/04/2022 CBC W/DIF F %eos 1.5 % 0.0 - 6.0 Not Available [facility] [address] [place], [address], 03/04/2022 20:31:12 03/04/20 22 03/04/2022 CBC W/DIF F %baso 0.6 % 0.0 - 1.0 Not Available [facility] [address] [place], [address], 03/04/2022 20:31:12 03/04/20 22 03/04/2022 CBC W/DIF F #neutrophil 5.73 K/uL 1.80 - 7.80 Not Available [facility] [address] [place], [address], 03/04/2022 20:31:12 03/04/20 22 03/04/2022 CBC W/DIF F #lymph 4.26 K/uL 0.30 - 4.00 high Not Available [facility] [address] [place], [address], 03/04/2022 20:31:12 03/04/20 22 03/04/2022 CBC W/DIF F #mono 0.76 K/uL 0.00 - 0.70 high Not Available [facility] [address] [place], [address], 03/04/2022 20:31:12 03/04/20 22 03/04/2022 CBC W/DIF F #eos 0.16 K/uL 0.00 - 0.40 Not Available [facility] [address] [place], [address], 03/04/2022 20:31:12 03/04/20 22 03/04/2022 CBC W/DIF F #baso 0.07 K/uL 0.00 - 0.10 Not Available [facility] [address] [place], [address], 03/04/2022 20:31:12 03/04/2003/04/2022 CBC W/DIF F slide reviewed? NOT INDICA JESSE Not Available [facility] [address] [place], [address], 03/04/2022 20:31:12 03/04/20 22 03/04/2022 CBC W/DIF F manual diff NOT INDICA JESSE Not Available [facility] [address] [place], [address], 03/04/2022 20:31:12 10/03/04/2022 COMPR EHENS DEWAYNE METAB OLIC PANEL comprehensiv e metabolic panel COMPR EHENS DEWAYNE METAB OLIC PANEL Not Available [facility] [address] [place], [address], 03/04/2022 20:39:02 03/04/20 22 03/04/2022 COMPR EHENS DEWAYNE METAB OLIC PANEL glucose V 100 mg/dL 74 - 106 Not Available [facility] [address] [place], [address], 03/04/2022 20:39:02 03/04/20 22 03/04/2022 COMPR EHENS DEWAYNE METAB OLIC PANEL sodium V 145 mmol/ L 137 - 145 Not Available [facility] [address] [place], [address], 03/04/2022 20:39:02 03/04/20 22 03/04/2022 COMPR EHENS DEWAYNE METAB OLIC PANEL potassium V 3.8 mmol/ L 3.5 - 5.1 Not Available [facility] [address] [place], [address], 03/04/2022 20:39:02 03/04/20 22 03/04/2022 COMPR EHENS DEWAYNE METAB OLIC PANEL chloride V 109 mmol/ L 98 - 107 high Not Available [facility] [address] [place], [address], 03/04/2022 20:39:02 03/04/20 22 03/04/2022 COMPR EHENS DEWAYNE METAB OLIC PANEL CO2 V 20 mmol/ L 22 - 30 low Not Available [facility] [address] [place], [address], 03/04/2022 20:39:02 03/04/2003/04/2022 COMPR EHENS DEWAYNE METAB OLIC PANEL BUN V 16.0 mg/dL 9.0 - 20.0 Not Available [facility] [address] [place], [address], 03/04/2022 20:39:02 03/04/20 22 03/04/2022 COMPR EHENS DEWAYNE METAB OLIC PANEL creatinine V 0.9 mg/dL 0.6 - 1.2 Not Available [facility] [address] [place], [address], 03/04/2022 20:39:02 03/04/20 22 03/04/2022 COMPR EHENS DEWAYNE METAB OLIC PANEL BUN/creat V 17.8 7.6 - 21.2 Not Available [facility] [address] [place], [address], 03/04/2022 20:39:02 03/04/20 22 03/04/2022 COMPR EHENS DEWAYNE METAB OLIC PANEL calcium V 9.3 mg/dL 8.4 - 10.2 Not Available [facility] [address] [place], [address], 03/04/2022 20:39:02 03/04/20 22 03/04/2022 COMPR EHENS DEWAYNE METAB OLIC PANEL total bili V 0.5 mg/dL 0.2 - 1.3 Not Available [facility] [address] [place], [address], 03/04/2022 20:39:02 03/04/20 22 03/04/2022 COMPR EHENS DEWAYNE METAB OLIC PANEL total protein V 7.4 g/dL 6.3 - 8.2 Not Available [facility] [address] [place], [address], 03/04/2022 20:39:02 03/04/20 22 03/04/2022 COMPR EHENS DEWAYNE METAB OLIC PANEL albumin V 4.7 g/dL 3.5 - 5.0 Not Available [facility] [address] [place], [address], 03/04/2022 20:39:02 03/04/20 22 03/04/2022 COMPR EHENS DEWAYNE METAB OLIC PANEL A/G ratio V 1.8 Not Available [facility] [address] [place], [address], 03/04/2022 20:39:02 03/04/20 22 03/04/2022 COMPR EHENS DEWAYNE METAB OLIC PANEL alkaline phos V 44 IU/L 38 - 126 Not Available [facility] [address] [place], [address], 03/04/2022 20:39:02 03/04/20 22 03/04/2022 COMPR EHENS DEWAYNE METAB OLIC PANEL AST/SGOT V 24 U/L 17 - 59 Not Available [facility] [address] [place], [address], 03/04/2022 20:39:02 03/04/20 22 03/04/2022 COMPR EHENS DEWAYNE METAB OLIC PANEL ALT/SGPT V 23 U/L 0 - 50 Not Available [facility] [address] [place], [address], 03/04/2022 20:39:02 03/04/20 22 03/04/2022 COMPR EHENS DEWAYNE METAB OLIC PANEL anion gap V 19.5 mmol/ L 7.0 - 16.0 high Not Available [facility] [address] [place], [address], 03/04/2022 20:39:02 03/04/20 22 03/04/2022 COMPR EHENS DEWAYNE METAB OLIC PANEL age V 36 years Not Available [facility] [address] [place], [address], 03/04/2022 20:39:02 03/04/20 22 03/04/2022 COMPR EHENS DEWAYNE METAB OLIC PANEL GFR V 101.48 mL/mi n GFR= mL/mi n/1.7 3m2 Nicole l Range for Cauca sians >60 mL/mi n/1.7 3m2 Nicole l Range for Afric an Ameri cans >50 mL/mi n/1.7 3m2 Not Available [facility] [address] [place], [address], 03/04/2022 20:39:02 03/04/20 22 03/04/2022 ALCOH OL alcohol V 60.00 mg/dL 0.00 - 10.00 high \BLDo \ALCO HOL INTER PRETA TION\ BLDx\ ALCOH OLS LESS THAN 10 mg/dL ARE CONSI DERED NEGAT DEWAYNE CRITI CALDERON VALUE S FOR ALCOH OL ARE GREAT ER THAN 300mg /dL. Not Available [facility] [address] [place], [address], 03/04/2022 20:39:04 03/04/20 22 03/04/2022 SALIC YLATE , SERUM OR PLASM A salicylates V <1.0 mg/dL 2.0 - 20.0 low Thera peuti c Range : <20 mg/dL . Toxic Level >30.0 mg/dL . Not Available [facility] [address] [place], [address], 03/04/2022 20:39:05 03/04/20 22 03/04/2022 COV-2 RT-PC R HCHC cov-2 RT-PCR hchc SARS- CoV-2 RT-PC R HCHC Not Available [facility] [address] [place], [address], 03/04/2022 21:14:25 03/04/20 22 03/04/2022 COV-2 RT-PC R HCHC sars-cov-2 NEGATI VE TEST PERFO RMED BY JOSE MANUEL Clemons [facility] [address] [facility] [address] Not Available [facility] [address] [place], [address], 03/04/2022 21:14:25 03/04/20 22 03/04/2022 TSH TSH V 1.610 mIU/m L 0.465 - 4.680 Not Available [facility] [address] [place], [address], 03/04/2022 21:14:32 03/04/20 22 03/04/2022 RAPID URINE DRUG SCREE N rapid urine drug screen Rapid Urine Drug Scree n Not Available [facility] [address] [place], [address], 03/04/2022 22:02:45 03/04/20 22 03/04/2022 RAPID URINE DRUG SCREE N cannabinoids (THC) NEGATI VE normal :negat dewayne Not Available [facility] [address] [place], [address], 03/04/2022 22:02:45 03/04/20 22 03/04/2022 RAPID URINE DRUG SCREE N opiates NEGATI VE normal :negat dewayne Not Available [facility] [address] [place], [address], 03/04/2022 22:02:45 03/04/20 22 03/04/2022 RAPID URINE DRUG SCREE N amphetamines NEGATI VE normal :negat dewayne Not Available [facility] [address] [place], [address], 03/04/2022 22:02:45 03/04/20 22 03/04/2022 RAPID URINE DRUG SCREE N cocaine NEGATI VE normal :negat dewayne Not Available [facility] [address] [place], [address], 03/04/2022 22:02:45 03/04/20 22 03/04/2022 RAPID URINE DRUG SCREE N tricyclic antidepres NEGATI VE normal :negat dewayne Not Available [facility] [address] [place], [address], 03/04/2022 22:02:45 03/04/20 22 03/04/2022 RAPID URINE DRUG SCREE N barbiturates NEGATI VE normal :negat dewayne Not Available [facility] [address] [place], [address], 03/04/2022 22:02:45 03/04/2003/04/2022 RAPID URINE DRUG SCREE N methadone NEGATI VE normal :negat dewayne Not Available [facility] [address] [place], [address], 03/04/2022 22:02:45 03/04/20 22 03/04/2022 RAPID URINE DRUG SCREE N benzodiazepi ifeoma NEGATI VE normal :negat dewayne Not Available [facility] [address] [place], [address], 03/04/2022 22:02:45 03/04/20 22 03/04/2022 RAPID URINE DRUG SCREE N propoxyphene NEGATI VE normal :negat dewayne Not Available [facility] [address] [place], [address], 03/04/2022 22:02:45 03/04/20 22 03/04/2022 RAPID URINE DRUG SCREE N methamphetam ine NEGATI VE normal :negat dewayne Not Available [facility] [address] [place], [address], 03/04/2022 22:02:45 03/04/20 22 03/04/2022 RAPID URINE DRUG SCREE N oxycodone NEGATI VE normal :negat dewayne Not Available [facility] [address] [place], [address], 03/04/2022 22:02:45 03/04/20 22 03/04/2022 RAPID URINE DRUG SCREE N phencyclidin e NEGATI VE normal :negat dewayne NOTE: Resul ts of this test are not confi rmed and shoul d be consi dered presu mptiv e. Pleas e call the lab to initi ate confi rmati on testi ng. Speci mens will be store d for TWO weeks . Resul ts of this test are inten ded to be inter prete d by a jody bonilla. This test is not inten ded for use in emplo gamboa drug testi ng or any foren sic purpo se. POSIT DEWAYNE DRUG CUTOF F JEFF NTRAT IONS DRUG TESTE D CUTOF F ===== ===== ===== ===== ===== ===== ===== CANNA BINOI DS 50 NG/ML OPIAT ES 100 NG/ML AMPHE TAMIN ES 500 NG/ML COCAI NE 150 NG/ML TRYCY CLIC ANTID EPRES 300 NG/ML OCTAVIA TURAT ES 200 NG/ML METHA DONE 200 NG/ML BENZO DIAZE PINES 150 NG/ML PROPO XYPHE NE 300 NG/ML METHA MPHET AMINE 500 NG/ML OXYCO DONE 100 NG/ML PHENC YCLID INE (PCP) 25 NG/ML NOTE: IF PROVI JENNIFER IS LOOKI NG FOR RITAL IN- RITAL INIC ACID (METH YLPHE NIDAT E METAB OLITE ), NEED TO ORDER DRUG MONIT ORING , METHY LPHEN IDATE METAT BOLIT E QUANT ITATI VE,UR INE. DO NOT ORDER AMPHE TAMIN E,CON FIRMA TION, URINE . Not Available [facility] [address] [place], [address], 03/04/2022 22:02:45 03/04/20 22 03/04/2022 ACETA MINOP HEN, SERUM OR PLASM A acetaminophe n V <10.0 mcg/m L 10.0 - 30.0 Thera peuti c range : 10 to 30 mcg/m L. Not Available [facility] [address] [place], [address], 03/04/2022 22:56:47 01/17/20 24 01/18/2024 TSH+F REE T4 TSH 0.960 uIU/m L 0.450- 4.500 normal Not Available [facility] [address], [place], [address], 01/18/2024 13:09:04 01/17/20 24 01/18/2024 TSH+F REE T4 T4,free(dire ct) 1.66 NG/dL 0.82-1 .77 normal Not Available [facility] [address], [place], [place], [address], 01/18/2024 13:09:04 01/17/20 24 01/17/2024 CBC WITH DIFFE RENTI AL/PL ATELE T WBC 6.17 thous /uL 4.80-1 0.80 normal Not Available [facility] [address], [place], [address], 01/18/2024 13:09:05 01/17/20 24 01/17/2024 CBC WITH DIFFE RENTI AL/PL ATELE T RBC 4.75 mill/ uL 4.70-6 .10 normal Not Available [facility] [address], [place], [address], 01/18/2024 13:09:05 01/17/20 24 01/17/2024 CBC WITH DIFFE RENTI AL/PL ATELE T hemoglobin 15.2 gm/dL 14.0-1 8.0 normal Not Available [facility] [address], [place], [address], 01/18/2024 13:09:01/17/20 24 01/17/2024 CBC WITH DIFFE RENTI AL/PL ATELE T hematocrit 43.6 % 42.0-5 2.0 normal Not Available [facility] [address], [place], [address], 01/18/2024 13:09:05 01/17/20 24 01/17/2024 CBC WITH DIFFE RENTI AL/PL ATELE T MCV 91.8 fL 83.0-9 7.0 normal Not Available [facility] [address], [place], [place], [address], 01/18/2024 13:09:05 01/17/20 24 01/17/2024 CBC WITH DIFFE RENTI AL/PL ATELE T MCH 32.0 pg 27.0-3 1.0 above high normal Not Available [facility] [address], [place], [address], 01/18/2024 13:09:05 01/17/20 24 01/17/2024 CBC WITH DIFFE RENTI AL/PL ATELE T MCHC 34.9 gm/dL 32.3-3 6.5 normal Not Available [facility] [address], [place], [address], 01/18/2024 13:09:05 01/17/20 24 01/17/2024 CBC WITH DIFFE RENTI AL/PL ATELE T RDW 11.4 % 11.5-1 5.5 below low normal Not Available [facility] [address], [place], [address], 01/18/2024 13:09:05 01/17/20 24 01/17/2024 CBC WITH DIFFE RENTI AL/PL ATELE T platelets 295 thous /uL 150-45 0 normal Not Available [facility] [address], [place], [address], 01/18/2024 13:09:05 01/17/20 24 01/17/2024 CBC WITH DIFFE RENTI AL/PL ATELE T neutrophils 45.9 % normal Not Available [facility] [address], [place], [address], 01/18/2024 13:09:05 01/17/20 24 01/17/2024 CBC WITH DIFFE RENTI AL/PL ATELE T lymphs 41.8 % normal Not Available [facility] [address], [place], [address], 01/18/2024 13:09:05 01/17/20 24 01/17/2024 CBC WITH DIFFE RENTI AL/PL ATELE T monocytes 10.5 % normal Not Available [facility] [address], [place], [address], 01/18/2024 13:09:05 01/17/20 24 01/17/2024 CBC WITH DIFFE RENTI AL/PL ATELE T eos 1.1 % normal Not Available [facility] [address], [place], [address], 01/18/2024 13:09:05 01/17/20 24 01/17/2024 CBC WITH DIFFE RENTI AL/PL ATELE T basos 0.5 % normal Not Available [facility] [address], [place], [address], 01/18/2024 13:09:05 01/17/20 24 01/17/2024 CBC WITH DIFFE RENTI AL/PL ATELE T neutrophils (absolute) 2.83 thous /uL 1.50-7 .50 normal Not Available [facility] [address], [place], [address], 01/18/2024 13:09:01/17/20 24 01/17/2024 CBC WITH DIFFE RENTI AL/PL ATELE T lymphs (absolute) 2.58 thous /uL 1.10-3 .00 normal Not Available [facility] [address], [place], [place], [address], 01/18/2024 13:09:05 01/17/20 24 01/17/2024 CBC WITH DIFFE RENTI AL/PL ATELE T monocytes(ab solute) 0.65 thous /uL 0.10-0 .75 normal Not Available [facility] [address], [place], [place], [address], 01/18/2024 13:09:05 01/17/20 24 01/17/2024 CBC WITH DIFFE RENTI AL/PL ATELE T eos (absolute) 0.07 thous /uL 0.00-0 .50 normal Not Available [facility] [address], [place], [place], [address], 01/18/2024 13:09:05 01/17/20 24 01/17/2024 CBC WITH DIFFE RENTI AL/PL ATELE T baso (absolute) 0.03 thous /uL 0.00-0 .10 normal Not Available [facility] [address], [place], [place], [address], 01/18/2024 13:09:05 01/17/20 24 01/17/2024 CBC WITH DIFFE RENTI AL/PL ATELE T immature granulocytes 0.2 % Not Available [facility] [address], [place], [place], [address], 01/18/2024 13:09:05 01/17/20 24 01/17/2024 CBC WITH DIFFE RENTI AL/PL ATELE T immature grans (abs) 0.01 thous /uL 0.00-0 .10 Not Available [facility] [address], [place], [address], 01/18/2024 13:09:05 01/17/20 24 01/17/2024 CBC WITH DIFFE RENTI AL/PL ATELE T NRBC 0.0 /100W BC <=0.0 Not Available [facility] [address], [place], [address], 01/18/2024 13:09:05 01/17/20 24 01/18/2024 COMP. METAB OLIC PANEL (14) glucose 107 mg/dL 65-99 above high normal Not Available [facility] [address], [place], [address], 01/18/2024 13:09:05 01/17/20 24 01/18/2024 COMP. METAB OLIC PANEL (14) BUN 12 mg/dL 6-20 normal Not Available [facility] [address], [place], [place], [address], 01/18/2024 13:09:05 01/17/20 24 01/18/2024 COMP. METAB OLIC PANEL (14) creatinine 1.05 mg/dL 0.76-1 .27 normal Not Available [facility] [address], [place], [id number], 01/18/2024 13:09:05 01/17/20 24 01/18/2024 COMP. METAB OLIC PANEL (14) eGFR 93 mL/mi n/1.7 3_m2 normal Not Available [facility] [facility] [address], [place], [address], 01/18/2024 13:09:05 01/17/20 24 01/18/2024 COMP. METAB OLIC PANEL (14) BUN/creatini ne ratio 11 ratio 6-20 normal Not Available [facility] [address], [place], [place], [address], 01/18/2024 13:09:05 01/17/20 24 01/18/2024 COMP. METAB OLIC PANEL (14) sodium 141 mmol/ L 134-14 4 normal Not Available [facility] [address], [place], [place], [address], 01/18/2024 13:09:05 01/17/20 24 01/18/2024 COMP. METAB OLIC PANEL (14) potassium 4.0 mmol/ L 3.5-5. 2 normal Not Available [facility] [address], [place], [place], [address], 01/18/2024 13:09:05 01/17/20 24 01/18/2024 COMP. METAB OLIC PANEL (14) chloride 104 mmol/ L 97-108 normal Not Available [facility] [address], [place], [address], 01/18/2024 13:09:05 01/17/20 24 01/18/2024 COMP. METAB OLIC PANEL (14) carbon dioxide, total 19 mmol/ L 18-29 normal Not Available [facility] [address], [place], [place], [address], 01/18/2024 13:09:05 01/17/20 24 01/18/2024 COMP. METAB OLIC PANEL (14) calcium 9.6 mg/dL 8.7-10 .2 normal Not Available [facility] [address], [place], [place], [address], 01/18/2024 13:09:05 01/17/20 24 01/18/2024 COMP. METAB OLIC PANEL (14) protein, total 6.6 gm/dL 6.0-8. 5 normal Not Available [facility] [address], [place], [address], 01/18/2024 13:09:05 01/17/20 24 01/18/2024 COMP. METAB OLIC PANEL (14) albumin 4.5 gm/dL 3.5-5. 5 normal Not Available [facility] [address], [place], [place], [address], 01/18/2024 13:09:05 01/17/20 24 01/18/2024 COMP. METAB OLIC PANEL (14) globulin, total 2.1 gm/dL 2.1-4. 0 Not Available [facility] [address], [place], [place], [address], 01/18/2024 13:09:05 01/17/20 24 01/18/2024 COMP. METAB OLIC PANEL (14) A/G ratio 2.1 Not Available [facility] [address], [place], [place], [address], 01/18/2024 13:09:05 01/17/20 24 01/18/2024 COMP. METAB OLIC PANEL (14) bilirubin, total 0.5 mg/dL <=1.2 normal Not Available [facility] [address], [place], [place], [address], 01/18/2024 13:09:05 01/17/20 24 01/18/2024 COMP. METAB OLIC PANEL (14) alkaline phosphatase 56 units /L 39-117 normal Not Available [facility] [address], [place], [place], [address], 01/18/2024 13:09:05 01/17/20 24 01/18/2024 COMP. METAB OLIC PANEL (14) AST (SGOT) 22 IU/L <=40 normal Not Available [facility] [address], [place], [place], [address], 01/18/2024 13:09:05 01/17/20 24 01/18/2024 COMP. METAB OLIC PANEL (14) ALT (SGPT) 24 IU/L <=44 normal Not Available [facility] [address], [place], [place], [address], 01/18/2024 13:09:05 01/17/2001/18/2024 LIPID PANEL cholesterol, total 144 mg/dL 100-19 9 normal Not Available [facility] [address], [place], [place], [address], 01/18/2024 13:09:06 01/17/20 24 01/18/2024 LIPID PANEL triglyceride s 143 mg/dL <=149 normal Not Available [facility] [address], [place], [place], [address], 01/18/2024 13:09:06 01/17/2001/18/2024 LIPID PANEL HDL cholesterol 40 mg/dL >=39 normal Risk Facto rs for CHD Major risk <40 mg/dl Nicole l range 40-59 mg/dl Negat dewayne risk >/= 60 mg/dl Not Available [facility] [address], [place], [place], [address], 01/18/2024 13:09:06 01/17/2001/18/2024 LIPID PANEL VLDL cholesterol calderon 29 mg/dL Not Available [facility] [address], [place], [place], [address], 01/18/2024 13:09:06 01/17/20 24 01/18/2024 LIPID PANEL LDL chol calc ([facility]) 75 mg/dL LDL Refer ence Range Optim al <100 mg/dl Near optim al 100-1 29 mg/dl Borde rline high 130-1 59 mg/dl High 160-1 89 mg/dl Very high >/= 190 mg/dl Not Available [facility] [address], [place], [place], [address], 01/18/2024 13:09:06 01/17/20 24 01/18/2024 TESTO STERO NE testosterone 329 NG/dL 264-91 6 normal Adult male refer ence inter is based on a popul ation of healt hy nonob vladimir males (BMI <30) betwe en 19 and 39 years old. Richmond alvarez, et.al . JCEM 2017, 102;1 161-1 173. PMID: 24413 103. Not Available [facility] ([facility]) [address], [place], [address], 01/18/2024 13:09:06 01/17/20 24 01/18/2024 HCV ANTIB ILEANA hep C virus Ab Non Reacti ve non reacti ve HCV antib ileana alone does not diffe renti ate betwe en previ ously resol ness infec tion and activ e infec tion. Equiv ocal and React dewayne HCV antib ileana resul ts shoul d be follo wed up with an HCV RNA test to suppo rt the diagn osis of activ e HCV infec tion. Not Available [facility] ([facility]) [address], [place], [address], 01/18/2024 13:09:07 Result Notes None recorded. Problems Name Problem SNOMED Code Status Onset Date Resolution Date Notes Provider Name and Address Organization Details Recorded Time Gastroes ophageal reflux disease without esophagi tis 380908529 Completed 202102/15/2024 NIKITA CASTILLO PA-C [address] , [place], [address] , [facility] 4 10:50:51 Leukocyt osis 904026657 Completed 202102/15/2024 NIKITA CASTILLO PA-C [address] , [place], [address] , [place] [facility] 4 10:50:20 Anxiety 42502948 Active 2021 Dominic Luther MD [address] , [place], [address] , [place] [facility] 4 14:45:46 Alcohol withdraw al 576729624 Active 2021 NIKITA CASTILLO PA-C [address] [facility] , [place], [address] , [facility] 4 10:49:48 At increase d risk of cardiova scular disease 70728197201 986949 Completed 202302/15/2024 NIKITA CASTILLO PA-C [address] , [place], [address] , [facility] 4 10:50:01 Hepatiti s C screenin g Completed 202302/15/2024 NIKITA CASTILLO PA-C [address] , [place], [address] , [facility] 4 10:50:01 Headache 81409926 Completed 202302/15/2024 NIKITA CASTILLO PA-C [address] [place] [address], [place], [address] , [facility] 4 10:50:01 Fatigue 66661400 Completed 202302/15/2024 NIKITA CASTILLO PA-C [address] [place] [address], [place], [address] , [facility] 4 10:50:01 Acute pharyngi tis 976919643 Completed 201108/09/2020 PHARYNGI TIS, ACUTE Not Available [facility] 1 21:06:46 Influenz a with respirat ory manifest ation other than pneumoni a Completed 201306/03/2013 INFLUENZ A W/RESPIR ATORY MANIFEST ATION NEC Not Available [facility] 0 08:15:13 History of tobacco use 10115496338 03 Active 2013 Increase d Risk of HX, PERSONAL , TOBACCO USE NIKITA CASTILLO PA-C [address] [facility] , [place], [address] , [facility] 4 10:49:48 Cough 14047457 Completed 201903/05/2022 Cough Domiinc Luther MD [address] [place] [address] 1, [place], [address] , [facility] 2 12:28:10 Problem Notes None recorded. Procedures Surgical History Date Name Laterality Status Provider Name and Address Organization Details Recorded Time Cerumen Removal completed Shawnee Ballard [facility] 2021 16:36:37 Imaging Results None recorded. Procedure Notes None recorded. Medical Equipment None Reported. Allergies No known drug allergies Medications Name Sig Start Date Stop Date Status Note LastModified by Organization Details LastModified Time amoxicill in 500 mg capsule 1 po tid 05/27 completed Clinical Date: 012 Rx ID: [id number] Not Available Not Available Not Available bupropion HCl SR 150 mg tablet,12 hr sustained -release 1 po daily for 3 days then bid 04/21 completed Clinical Date: 014 Rx ID: [id number] Not Available Not Available Not Available paroxetin e 10 mg tablet TAKE ONE TABLET BY MOUTH EVERY DAY THEN BEGIN TAKING PAROXETI NE 20 MG TABLETS 02/06 completed Not Available Not Available Not Available azithromy yoli 250 mg tablet TAKE TWO TABLETS BY MOUTH ONE DOSE ON THE FIRST DAY, THEN TAKE ONE DAILY THEREAFT ER. 04/25 completed Not Available Not Available Not Available risperido ne 2 mg tablet 01/16 completed Not Available Not Available Not Available lorazepam 0.5 mg tablet TAKE ONE TABLET BY MOUTH THREE TIMES A DAY NEEDED active Not Available Not Available No t Available chlordiaz epoxide 25 mg capsule TAKE DIRECTED 03/16 completed Not Available Not Available Not Available paroxetin e 30 mg tablet TAKE ONE TABLET BY MOUTH EVERY DAY active Not Available Not Available No t Available paroxetin e 20 mg tablet TAKE ONE TABLET BY MOUTH EVERY DAY FOR 7 DAYS AFTER COMPLETI NG 10 MG TABLETS 02/06 completed Not Available Not Available Not Available pantopraz ole 40 mg tablet,de layed release Take 1 tablet every day by oral route. 01/16 completed Not Available Not Available Not Available albuterol sulfate HFA 90 mcg/actua tion aerosol inhaler 1-2 puffs every 4 hours as needed for wheezing or cough 04/21 completed Clinical Date: Rx ID: [id number] Not Available Not Available Not Available escitalop homero 10 mg tablet TAKE ONE-HALF TABLET BY MOUTH EVERY DAY FOR 7 DAYS, THEN INCREASE TO ONE TABLET DAILY 01/16 completed Not Available Not Available Not Available bupropion HCl XL 300 mg 24 hr tablet, extended release TAKE ONE TABLET BY MOUTH EVERY DAY 01/16 completed Not Available Not Available Not Available bupropion HCl XL 150 mg 24 hr tablet, extended release TAKE ONE TABLET BY MOUTH EVERY DAY 03/16 completed Not Available Not Available Not Available omeprazol e 1 daily 04/25 completed Not Available Not Available Not Available Tums 2 tid 04/25 completed Not Available Not Available Not Available varenicli ne tartrate 0.5 mg (11)-1 mg (42) tablets in a dose pack TAKE DIRECTED active Not Available Not Available No t Available Vitals Date Recorded Body height Body mass index (BMI) Body weight Body temperature Heart rate Respiratory rate Oxygen saturation Oxygen saturation in Arterial blood by Pulse oximetry Systolic blood pressure Diastolic blood pressure Provider Name and Address Organization Details Last Updated DateTime 2 152.4 cm 23.8 kg/m2 27225.2 7 g 98.4 [degF] 80 /min 21 /min 100 % 100 % 122 mm[Hg] 77 mm[Hg] Yamilet Huggins [place] [facility] 2 12:22:45 Date Recorded Body height Body mass index (BMI) Body weight Heart rate Respiratory rate Oxygen saturation Oxygen saturation in Arterial blood by Pulse oximetry Systolic blood pressure Diastolic blood pressure Provider Name and Address Organization Details Last Updated DateTime 2 152.4 cm 26.2 kg/m2 99907.3 8 g 64 /min 21 /min 99 % 99 % 115 mm[Hg] 68 mm[Hg] Bella Seo [place] [facility] 2 11:50:44 Date Recorded Body height Body mass index (BMI) Body weight Heart rate Respiratory rate Oxygen saturation Oxygen saturation in Arterial blood by Pulse oximetry Systolic blood pressure Diastolic blood pressure Provider Name and Address Organization Details Last Updated DateTime 2 152.4 cm 24 kg/m2 35406.8 6 g 73 /min 21 /min 99 % 99 % 132 mm[Hg] 75 mm[Hg] Bella Rayray [place] [facility] 2 14:15:34 Date Recorded Body weight Oxygen saturation Oxygen saturation in Arterial blood by Pulse oximetry Heart rate Respiratory rate Body temperature Systolic blood pressure Diastolic blood pressure Provider Name and Address Organization Details Last Updated DateTime 4 32993.4 4 g 98 % 98 % 70 /min 19 /min 98.5 [degF] 113 mm[Hg] 72 mm[Hg] Radha Woodard [place] [facility] 4 14:35:13 Date Recorded Body weight Heart rate Oxygen saturation Oxygen saturation in Arterial blood by Pulse oximetry Systolic blood pressure Diastolic blood pressure Provider Name and Address Organization Details Last Updated DateTime 4 38080.2 3 g 68 /min 99 % 99 % 116 mm[Hg] 64 mm[Hg] Angelika Puckett [place] [facility] 4 15:04:47 Social History Question Answer Notes LastModified by Organizat ion Details LastModified Time Tobacco Smoking Status Current Every Day Smoker Ursula lovett, [place] [facility] 2021 16:13:00 What Is Your Level Of Alcohol Consumption? Moderate Information not available 2021 Are You Blind Or Do You Have Difficulty Seeing? No Information not available 2021 What Is Your Level Of Caffeine Consumption? Moderate Information not available 2021 Are You Currently Employed? Yes Information not available 2021 Are You Deaf Or Do You Have Serious Difficulty Hearing? No Information not available 2021 What Is Your Occupation? [employer] Information not available 2021 How Many Children Do You Have? 2 Information not available 2021 What Is Your Relationship Status? Information not available 2021 How Much Tobacco Do You Smoke? 1 PPD Information not available 2021 Sex: Unknown Functional Status Question Answer Note LastModified by Organizat ion Details LastModified Time Do you have difficulty walking or climbing stairs? No Information not available 2021 Are you able to walk? YESWOREST Information not available 2021 Do you have difficulty doing errands alone? No Information not available 2021 Are you able to care for yourself? Yes Information not available 2021 Do you have difficulty dressing or bathing? No Information not available 2021 Mental Status Question Answer Note LastModified by Organization D etails LastModified Time Do you have difficulty concentrating, remembering or making decisions? No Information no t available 2021 Family History Nothing Reported Notes:Emphysema Medical History No medical history recorded. Immunizations Vaccine Type Date Status Note Provider Nam e and Address Organization Details Recorded Time Influenza, split virus, trivalent, PF 01/17/2024 completed Dominic Luther MD [address] [place] [address], [address], [facility] 01/17/2024 16:23:03 Past Encounters Encounter ID Performer Location Encounter Start Date Encounter Closed Date Diagnosis/Indication Diagnosis SNOMED-CT Code Diagnosis ICD10 Code Diagnosis Note [id number] Dominic Luther MD [facility] [address] [place] [address] 2021 15:59:59 2021 16:41:52 Pain in throat 085296821 R07.0 Rapid strep testing was obtained. We'll plan to call with results. Smoker 00173819 F17.200 Discussed smoking cessation briefly. Would recommend refraining from smoking he still. Impacted c erumen in right ear 4485180865 665514 H61.21 Right ear was irrigated. Acute bronchitis 2000352 2 J20.9 He has adventitio us lung sounds on the right upper and right lower lobes posteriorl y. He is a smoker. We'll treat with azithromyc in. Continue acetaminop hen, ibuprofen, and Mucinex for symptomati c management . Advised smoking cessation. no improvemen t within the next 4872 hours, return for reevaluati on. [id number] Dominic Luther MD [facility] [address] [address] 04/25/2021 16:06:21 04/25/2021 17:28:53 Gastroesophageal reflux disease 681333178 K21.00 Start pantoprazo le 40 mg per day. He may continue famotidine 20 mg twice daily and also Tums as needed. He states that sometimes he feels like things get stuck in the bottom of his esophagus. We'll plan to order an upper GI. Pain is mainly located in the Epigastriu m and right upper quadrant. Right uppe r quadrant pain 617454254 R10.11 Check labs today. We'll order an upper GI series. I think that his symptoms are mainly related to acid reflux although I cannot rule out acute cholecysti tis. [id number] Dominic Luther MD [facility] [address] [address] 03/05/2022 12:09:19 03/05/2022 12:56:37 Anxiety 52271480 F41.9 follow-up in 2 weeks or sooner if needed Leukocytosis 229944375 D 72.829 we can repeat his level at a future date Gastroesop hageal reflux disease without esophagitis 118941811 K21.9 chart was reviewed while he was here, currently his reflux is well controlled Alcohol withdrawal 58010 0000 F10.939 For simplicity , we typically I will have the patient to begin treatment as soon as they wake up, before they have taken any alcohol. Additional ly, give five doses of medication to take as needed (ie, symptom-tr iggered doses) for tremulousn ess, anxiety, diaphoresi s, or palpitatio ns that are present or emerge despite the fixed-dose schedule. We provide education concerning the symptoms that should prompt taking an additional dose and the risks that are associated with additional medication s. We prescribe the same medication and dose that is being prescribed for each scheduled dose (ie, fixed dose) during days 2 through 4 of their fixed-dose taper. We provide these extra doses in addition to the medication s being given for the fixed-dose regimen. We provide five doses of symptom-tr iggered medication in the four-day taper as in some cases, residual symptoms warrant extending the taper by a day. For example, in an individual who is being treated with chlordiaze poxide, we would prescribe 15 tablets of chlordiaze poxide (50 mg each) in a single prescripti on (10 doses for fixed taper, 5 extra symptom-tr iggered doses). Day 1: 50 mg orally every 6 hours (200 mg total daily dose) Day 2: 50 mg orally every 8 hours (150 mg total daily dose) Day 3: 50 mg orally every 12 hours (100 mg total daily dose) Day 4: 50 mg once at night (50 mg total daily dose) [id number] Dominic Luther MD [facility] [address] [address] 03/11/2022 11:42:57 03/11/2022 14:18:50 Anxiety 20076541 F41.9 follow-up in 2 weeks or sooner if needed, he may come in whenever his medicine runs out so we can reassess and refill the prescripti on Alcohol withdrawal 07301 0000 F10.939 improved, he was successful ly able to stop drinking alcohol and finished the Librium [id number] Dominic Luther MD [address] [address] 03/16/2022 14:03:08 03/16/2022 14:52:09 Paranoid ideation 516891831 F22 if he does need to addd antipsycho tics to the regimen and he will have to consult with a psychiatri st Persistent insomnia 9 [address]014 G47.09 hopefully the benzodiaze pine helps with his anxiety short-term and helps him sleep, this will be a bridge in his therapy until the SSRI takes full effect Anxiety 23666120 F41.9 follow-up in 2 weeks or sooner if needed, he may come in whenever his medicine runs out so we can reassess and refill the prescripti on [id number] Dominic Luther MD [facility] [address] [address] 01/17/2024 14:21:47 01/17/2024 15:34:41 Anxiety 14326317 F41.9 follow-up in 2 weeks or sooner if needed, he may come in whenever his medicine runs out so we can reassess and refill the prescripti on Smoker 50313964 F17.200 motivation al interviewi ng technique employed to risk reduction counselor on smoking cessation At [facility] risk of cardiovascular disease 9515352650 6618032 Z91.89 I'll order and review his lipids and review the results with him at his wellness visit Hepatitis C screening 41 3134659 Z11.59 due for screening blood work Headache 69981828 R51.9 return if the problem worsens or changes Administra tion of influenza vaccine 06971414 Z23 Fatigue 05023155 R53.83 further investigat ion pending [id number] Dominic Luther MD [facility] of [address] [address] 02/07/2024 14:46:16 02/07/2024 15:52:16 Anxiety 69757028 F41.9 follow-up in 6 weeks or sooner if needed, he may come in whenever his medicine runs out so we can reassess and refill the prescripti on Health Concerns Section Related Observation LastModified by Organization Detai ls LastModified Time None Recorded Concern Status LastModified by Organization Details LastModified Time None Recorded Advance Directives Directive None Recorded Payers Encounter Date Sequence Insurance Name Policy Number Policy Barraza Covered Member ID Barraza Member ID Guarantor Name 03/05/2022 1 [place] [employer] [place] [id number] Marco A Ordonez [id number] Marco A Ordonez 03/11/2022 1 [place] [place] [id number] Marco A Ordonez [id number] Marco A Ordonez 03/16/2022 1 [place] [id number] 0 Marco A Ordonez [id number] Marco A Ordonez 01/17/2024 1 [place] [id number] 0 Marco A Ordonez [id number] Marco A Ordonez 02/07/2024 1 [place] [id number] 0 Marco A Ordonez [id number] Marco A Ordonez Notes Date Note Type Note Provider Name and Address Organization Details Recorded Time 03/05/2022 text/html Generalized Anxi ety DisorderReported bypatient.Associated Symptoms:no difficulty swallowing; no nausea; no diarrhea;difficulty concentrating;difficul ty controlling worry;excess anxiety Pt present today to discuss getting a note for his mental health.I wrote him a letter to excuse him for the work that he has missed this week and also told him that he could he was more details to fill out the FMLA form, he says that will need too be faxed into [employer].He has missed all week due to his mental health.he has had struggles with anxiety and depression, along with alcohol and illicit drug abuse.He was wanting to discuss getting on something to help. he has not been able to get into a mental health provider yetHe has never done this before.this is all new for himHe was in the ER but ended up leaving and came here. He said the ER tested him for covid and georgina blood.he said it was taking too long over theirHe is wanting to be off work indefinitely until he can get some help. He is wanting it faxed to [employer]- [phone] [facility] MD [address], [place], [address], [facility] 03/05/2022 13:17:43 03/11/2022 text/html FMLA Paperwork, I also had time to use motivational tecchniques to elicit change talk and encourage hiim with healthy habits choices in lifestyle and encouragement. MD Andrews Shields [facility] [address], [place], [address], [facility] 03/11/2022 16:05:32 03/16/2022 text/html Medication check/Change, he would also like to extend his FMLA leave because he hasn't been sleeping well and needs to be off until next Wednesday. He still feels anxious, he feels more paranoid, and he hasn't really realize the full effect of his serotonin reuptake inhibitor. MD Andrews Shields [address], [address], [facility] 03/16/2022 15:53:04 01/17/2024 text/html Patient is a 38y o M who presents today for anxiety. patient took one of his LORazepam pills this morning and he only has one left. Symptoms started a while ago and patient has been trying to deal with it on his own. Patient has had rage, anxiety, trouble being around people, not eating, sleep is a little messed up, fatigue, headaches, difficulty concentration, pressure around his head, and lack of motivation. Patient would like to know if he could get on a chantix to quit smoking. He is also due for his annual exam soon so I can order and review his blood work, help him with prescriptions and then give him some smoking cessation counseling today as well. This 15 minute depression and anxiety screening was positive today MD Andrews Shields [facility] [address] [place] [address], [address], [facility] 01/17/2024 16:23:11 02/07/2024 text/html 38 y/o male pres enting today for a follow up on his medications. Last visit he was put on lorazepam and paroxetine for anxiety he states both medications seem to be helping.He'll need refills, and I also reviewed his pHQ and ZENON which are still positive MD Andrews Shields [address], [address], [facility] 02/07/2024 15:26:29
--- OUTSIDE RECORDS SUMMARY | 2024-07-14 10:52 | XMS_ITS ---
Author Organization Unknown Address [address] [place], [place] [id number] Phone Care Team Providers Care Police Manager Name Role Phone NIKKIE DEL TORO Attending [...] Completed: 05/12 09:20 LOINC: \TM00\10PI\LM03\RM80\BELKIS o\BM09\ \MRHo\ [address] [address] ---------NAME--------- NUMBER SEX AGE ADMIT DISC. XRAY# F/C TYPE PRASHANT Corey [id number] M 36 05/12/21 05/12/21 01147 BB O/P DATE OF : 1985 M/R# [id number] PH#: [phone] RM \MRHx\ LOCATION: TRANSCRIBED: 05/12/21 9:41 PSR UGI W/AIR [id number] COMPLETED:05/12/21 9:20 VLF 97923 {REASON ABD PROC GERD WITH ESOPHAGITIS, PHYSICIAN: [...] em Smoking History Current every day smoker 648703755 SNOMED CT Smoking History Former smoker 5447890 SNOMED CT Sex Male Assessment You had [...] Status Code Code System ACUTE BRONCHITIS active 21653944 SNO MED-CT CURRENT SMOKER active 16803405 SNOME D-CT CERUMEN IMPACTION active 74549139 SN OMED-CT Allergies and Adverse Reactions Allergy Substance Reaction Severity Start Date Concern Status Co de Code System No Known Drug Allergies Moderate Active 461549177 SNOMED-CT Plan of Treatment No Data Found Encounters Encounter Diagnosis Start Date Code Code Sys tem Gastro-esophageal reflux dis ease with esophagitis, without bleeding 05/12/2021 SNOMED-CT Personal Care Team Section Performer Name Performer Role Active Date Inactive Christopher collier LUCASDUC JOSE RAFAEL PCP - Primary care physician 2022-03-04 Imaging Narrative Notes I NC 07/12/2021 03:48 [address] [place] [address] ---------NAME--------- NUMBER SEX AGE ADMIT DISC. XRAY# F/C TYPE PRASHANT Corey [id number] M 36 05/12/21 05/12/21 19553 BB O/P DATE OF : 1985 M/R# [id number] #: [phone] LOCATION: TRANSCRIBED: 05/12/21 9:41 PSR UGI W/AIR [id number] COMPLETED:05/12/21 9:20 VLF 09964 {REASON ABD PROC GERD WITH ESOPHAGITIS, PHYSICIAN: [...]
--- OUTSIDE RECORDS SUMMARY | 2024-07-14 10:52 | XMS_ITS ---
Author Organization Unknown Address [address] [place], [place] [address] Phone Care Team Providers Care Paver Name Role Phone NIKKIE DEL TORO Attending [...] - Collect Date/Ti me: 11/27/2019 09:56 [facility] I NC ID: [id number] [address] [place], [place], [address] LOINC: F59727-5 Test Value Unit Reference Range Code Code System Flag SARS CoV 2 RNA NOT DETECTED NOT DETECTED 23421-7 LOINC ORGANISM COVID-19 NOT DETECTED F21877-0 LOINC Social History Type Status Start Date End Date Code Code Syst em Smoking History Current every day smoker 511354065 SNOMED CT Smoking History Former smoker 6184992 SNOMED CT Sex Male Assessment You had [...] Status Code Code System ACUTE BRONCHITIS active 48790315 SNO MED-CT CURRENT SMOKER active 85345066 SNOME D-CT CERUMEN IMPACTION active 46154533 SN OMED-CT Allergies and Adverse Reactions Allergy Substance Reaction Severity Start Date Concern Status Co de Code System No Known Drug Allergies Moderate Active 931720676 SNOMED-CT Plan of Treatment No Data Found Encounters Encounter Diagnosis Start Date Code Code Sys tem Cough 11/27/2019 87480969 SNOMED-CT Personal Care Team Section Performer Name Performer Role Active Date Inactive Christopher Arnold PCP - Primary care physician 2022-03-04
--- OUTSIDE RECORDS SUMMARY | 2024-07-14 10:52 | XMS_ITS ---
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 Role Phone WASHINGTON CALDERON Attending Unavailable [...] SCREEN - Co llect Date/Time: 03/04/2022 21:02 [facility] ID: [id number] [address] [place], [address] LOINC: 84179-3 Test Value Unit Reference Range Code Code System Flag CANNABINOIDS (THC) NEGATIVE NORMAL:Negative OPIATES NEGATIVE NORMAL:Negative AMPHETAMINES NEGATIVE NORMAL:Negative COCAINE NEGATIVE NORMAL:Negative TRICYCLIC ANTIDEPRES NEGATIVE NORMAL:Negative BARBITURATES NEGATIVE NORMAL:Negative METHADONE NEGATIVE NORMAL:Negative BENZODIAZEPINES NEGATIVE NORMAL:Negative PROPOXYPHENE NEGATIVE NORMAL:Negative METHAMPHETAMINE NEGATIVE NORMAL:Negative OXYCODONE NEGATIVE NORMAL:Negative PHENCYCLIDINE NEGATIVE NORMAL:Negative CBC W/DIFF - Collect Date/Ti me: 03/04/2022 19:19 [facility] ID: [id number] [address] [place], [address] LOINC: 54880-5 Test Value Unit Reference Range Code Code System Flag WBC 11.0 K/uL L=3.2 H=10.0 6690-2 LOINC H RBC 4.94 M/uL L=4.30 H=5.70 789-8 LOINC HEMOGLOBIN 15.6 g/dL L=13.6 H=17.1 718-7 LOINC HEMATOCRIT 43.9 % L=40.0 H=52.0 63429-6 LOINC MCV 88.9 fL L=81.0 H=101 MCH [...] PANE L - Collect Date/Time: 03/04/2022 19:19 [facility] ID: [id number] [address] [place], [address] LOINC: 96296-2 Test Value Unit Reference Range Code Code [...] LOINC CALCIUM V 9.3 mg/dL L=8.4 H=10.2 56622-4 LOINC TOTAL BILI V 0.5 mg/dL L=0.2 [...] PLAS MA - Collect Date/Time: 03/04/2022 19:19 [facility] ID: [id number] [address] [place], [address] LOINC: 3298-7 Test Value Unit Reference Range Code Code System Flag ACETAMINOPHEN V < 10.0 mcg/mL L=10.0 H=30.0 3298-7 LOINC ALCOHOL - Collect Date/Time: 03/04/2022 19:19 [facility] ID: [id number] [address] [place], [address] LOINC: 5643-2 Test Value Unit Reference Range Code Code System Flag ALCOHOL V 60.00 mg/dL L=0.00 H=10.00 5643-2 LOINC H SALICYLATE, SERUM OR PLASMA - Collect Date/Time: 03/04/2022 19:19 [facility] ID: [id number] [address] [facility], [place], [address] LOINC: 4024-6 Test Value Unit Reference Range Code Code System Flag SALICYLATES V < 1.0 mg/dL L=2.0 H=20.0 2880-3 LOINC L TSH - Collect Date/Time: 19:19 [facility] ID: [id number] [address] [facility], [place], [address] LOINC: 3016-3 Test Value Unit Reference Range Code Code System Flag TSH V 1.610 mIU/mL L=0.465 H=4.680 3016-3 LOINC CoV-2 RT-PCR [facility] - Collect Date/Time: 03/04/2022 19:19 [facility] ID: [id number] [address] [place], [address] LOINC: G09741-8 Test Value Unit Reference Range Code Code System Flag SARS-CoV-2 NEGATIVE Y40484-3 LOINC Social History Type Status Start Date End Date Code Code Syst em Smoking History Current every day smoker 189680749 SNOMED CT Smoking History Former smoker 7535406 SNOMED CT Sex Male Assessment You had [...] Syste m THER/PROPH/DIAG INJ SC/IM 03/04/2022 completed 92496 CPT Problems Problem Start Date Resolved Date Status Code Code System ACUTE BRONCHITIS active 92077539 SNO MED-CT CURRENT SMOKER active 61735264 SNOME D-CT CERUMEN IMPACTION active 74140417 SN OMED-CT Allergies and Adverse Reactions Allergy Substance Reaction Severity Start Date Concern Status Co de Code System No Known Drug Allergies Moderate Active 675826866 SNOMED-CT Plan of Treatment No Data Found Encounters Encounter Diagnosis Start Date Code Code Sys tem Delusional disorders 03/04/2022 SNOMED- CT Personal Care Team Section Performer Name Performer Role Active Date Inactive Christopher Arnold PCP - Primary care physician 2022-03-04
--- OUTSIDE RECORDS SUMMARY | 2024-07-14 10:52 | XMS_ITS ---
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 Name Role Phone ABILIO ISBELL Attending Unavailable [...] em Smoking History Current every day smoker 628632303 SNOMED CT Smoking History Former smoker 7494812 SNOMED CT Sex Male Assessment You had [...] Status Code Code System ACUTE BRONCHITIS active 69816109 SNO MED-CT CURRENT SMOKER active 71527005 SNOME D-CT CERUMEN IMPACTION active 54370917 SN OMED-CT Allergies and Adverse Reactions Allergy Substance Reaction Severity Start Date Concern Status Co de Code System No Known Drug Allergies Moderate Active 163569696 SNOMED-CT Plan of Treatment No Data Found Encounters Encounter Diagnosis Start Date Code Code Sys tem Delusional disorders 03/19/2022 SNOMED- CT Personal Care Team Section Performer Name Performer Role Active Date Inactive Christopher Arnold PCP - Primary care physician 2022-03-04
== END 2024-07-14 10:31 | disposition home or self-care (01) ==
PROVIDERS: Emergency Provider Nurse Practitioner Family
DX: J20.9 Acute bronchitis, unspecified (principal); F17.210 Nicotine dependence, cigarettes, uncomplicated
CPT/HCPCS: 99203; G0463